=== PATIENT | female | born 1985 | race American Indian/Alaskan Native ===

== ENCOUNTER 2017-10-10 10:07 | Emergency (ER) | payer OTHER ==
[2017-10-09 20:32] LABS: Basophils % (Auto) 0.6 % (0.0-1.8); Eosinophils % (Auto) 0.5 % (0.0-4.3); Hematocrit 37.7 % (30.3-42.9); Hemoglobin 13.1 gm/dl (10.1-14.3); Lymphocytes # (Auto) 1.8 K/mm3 (1.2-5.4); Lymphocytes % (Auto) 28.9 % (13.4-35.0); Mean Corpuscular HGB Conc 35 % (30-34); Mean Corpuscular Hemoglobin 30 pg (28-32); Mean Corpuscular Volume 86 fl (79-97); Monocytes # (Auto) 0.6 K/mm3 (0.0-0.8); Platelet Count 297 K/mm3 (140-440); Red Blood Count 4.37 M/mm3 (3.65-5.03); Red Cell Distribution Width 13.4 % (13.2-15.2)
[2017-10-09 20:45] LABS: Mucus,Urine FEW /HPF
[2017-10-09 20:51] LABS: Alanine Aminotransferase 11 units/L (7-56); Albumin 4.3 g/dL (3.9-5); BUN/Creatinine Ratio 13; Blood Urea Nitrogen 8 mg/dL (7-17); Calcium 8.6 mg/dL (8.4-10.2); Hemolysis Index 3
[2017-10-09 21:06] LABS: Bacteria,Urine 1+ /HPF (Negative); Bilirubin,Urine NEG (Negative); Blood,Urine LG (Negative); Color,Urine Yellow (Yellow); Protein,Urine <15 mg/dL mg/dL (Negative); Urobilinogen,Urine < 2.0 mg/dL (<2.0)
--- NOTE | 2017-10-09 22:06 | Ultrasound Report ---
FINAL REPORT EXAM: US OB TRANSVAGINAL HISTORY: +hcg abd pain TECHNIQUE: Ultrasound obstetrical transvaginal PRIORS: None. FINDINGS: Uterus measures 8.5 x 4.5 x 5.4 centimeters no focal myometrial seen There is no evidence for gestational sac within the uterus Left ovary is 2.7 x 1.7 x 1.3 centimeters. No abnormal mass or cyst identified on the left The right ovary is 3.2 x 2.2 x 2.2 centimeters Just adjacent to the right ovary there is a thick walled ring-like structure which is hypoechoic internally. There is a yolk sac identified and a pole. cardiac activity present with heart rate of 108 beats per minute Minimal non complex free fluid seen within the cul-de-sac IMPRESSION: Findings are positive for ectopic . There is a gestational sac with pole present just adjacent to the right ovary. cardiac activity noted Minimal non complex free fluid within the cul-de-sac
--- NOTE | 2017-10-09 22:08 | Ultrasound Report ---
FINAL REPORT EXAM: US OB < = 14 WEEKS FETUS HISTORY: +hcg abd pain TECHNIQUE: Ultrasound obstetrical transabdominal PRIORS: None. FINDINGS: Uterus measures 8.5 x 4.5 x 5.4 centimeters no focal myometrial seen There is no evidence for gestational sac within the uterus Left ovary is 2.7 x 1.7 x 1.3 centimeters. No abnormal mass or cyst identified on the left The right ovary is 3.2 x 2.2 x 2.2 centimeters Just adjacent to the right ovary there is a thick walled ring-like structure which is hypoechoic internally. There is a yolk sac identified and a pole. cardiac activity present with heart rate of 108 beats per minute. pole measures 3.4 millimeters corresponding to estimated gestational age of 6 weeks 0 days Minimal non complex free fluid seen within the cul-de-sac IMPRESSION: Findings are positive for ectopic . There is a gestational sac with pole present just adjacent to the right ovary. cardiac activity noted. [place]-rump length measuring at 6 weeks 0 days. Minimal non complex free fluid within the cul-de-sac
--- NOTE | 2017-10-09 22:19 | Emergency Department Report ---
ED Abdominal Pain HPI - General Chief Complaint: Abdominal Pain Stated Complaint: ABD PAIN/ Source: patient Mode of arrival: Ambulatory Limitations: No Limitations - History of Present Illness Initial Comments: There is a 32-year-old [place] female A3 at this point all 3 ectopic patient has had ectopic pregnancies 2 over the past 2 years presents today for right lower quadrant pain special. 6 weeks ago started spotting one week ago to progress active bleeding today pain is a 10 cramping sharp ultrasound shows right ectopic hCG was [id number] oh be paged I was notified by radiology for ectopic plan admit to OB problem possible lapapscopy MD Complaint: abdominal pain, flank pain Onset/Timin -: days(s) Location: RLQ, suprapubic Radiation: suprapubic, R flank Severity scale (0 -10): 8 Quality: cramping, sharp Consistency: constant Improves With: nothing Worsens With: movement Associated Symptoms: other (vaginal bleeding ) - Related Data LMP Date: 09/01/17 LMP (females 10-50): other (6 weeks) Previous Rx's Medication Instructions Recorded Last Taken Type metroNIDAZOLE [Flagyl] 500 mg PO BID #14 tablet 08/30/13 Unknown Rx Allergies Allergy/AdvReac Type Severity Reaction Status Date / Time No Known Allergies Allergy Verified 10/09/17 22:30 ED Review of Systems ROS: Stated complaint: ABD PAIN/ Other details as noted in HPI Constitutional: denies: chills, fever Eyes: denies: eye pain, eye discharge, vision change ENT: denies: ear pain, throat pain Respiratory: denies: cough, shortness of breath, wheezing Cardiovascular: denies: chest pain, palpitations Endocrine: no symptoms reported Gastrointestinal: nausea, vomiting Genitourinary: other (vaginal bleeding ) Musculoskeletal: denies: back pain, joint swelling, arthralgia Skin: denies: rash, lesions Neurological: denies: headache, weakness, paresthesias Psychiatric: denies: anxiety, depression Hematological/Lymphatic: denies: easy bleeding, easy bruising ED Past Medical Hx - Past Medical History Previous Medical History?: No - Surgical History Past Surgical History?: Yes Additional Surgical History: ECTOPIC X2 - Social History Smoking Status: Former Smoker Substance Use Type: None - Medications Home Medications: Home Medications Medication Instructions Recorded Confirmed Last Taken Type metroNIDAZOLE [Flagyl] 500 mg PO BID #14 tablet 08/30/13 Unknown Rx ED Physical Exam - General Limitations: No Limitations General appearance: alert, in no apparent distress - Head Head exam: Present: atraumatic, normocephalic - Eye Eye exam: Present: normal appearance - ENT ENT exam: Present: mucous membranes moist - Neck Neck exam: Present: normal inspection - Respiratory Respiratory exam: Present: normal lung sounds bilaterally. Absent: respiratory distress - Cardiovascular Cardiovascular Exam: Present: regular rate, normal rhythm. Absent: systolic murmur, diastolic murmur, rubs, gallop - GI/Abdominal GI/Abdominal exam: Present: tenderness (RLQ superpubic ), guarding, rebound, normal bowel sounds. Absent: rigid, organomegaly, mass, bruit, pulsatile mass, hernia - Rectal Rectal exam: Present: deferred - Extremities Exam Extremities exam: Present: normal inspection - Back Exam Back exam: Present: normal inspection - Neurological Exam Neurological exam: Present: alert, oriented X3, CN II-XII intact, normal gait, reflexes normal - Psychiatric Psychiatric exam: Present: normal affect, normal mood - Skin Skin exam: Present: warm, dry, intact, normal color. Absent: rash ED Course Vital Signs 10/09/17 10/09/17 10/09/17 20:03 22:22 22:34 Temperature 98.8 F Pulse Rate 88 71 Respiratory 18 18 19 Rate Blood Pressure 118/79 Blood Pressure [Right] O2 Sat by Pulse 97 98 Oximetry 10/09/17 10/09/17 10/09/17 22:44 22:46 23:00 Temperature Pulse Rate 73 93 H 77 Respiratory 16 14 11 L Rate Blood Pressure 130/76 132/69 Blood Pressure 130/76 [Right] O2 Sat by Pulse 99 99 99 Oximetry 10/09/17 10/09/17 10/09/17 23:03 23:16 23:33 Temperature Pulse Rate 79 Respiratory 18 11 L 18 Rate Blood Pressure 132/69 Blood Pressure [Right] O2 Sat by Pulse 100 Oximetry 10/09/17 10/09/17 10/10/17 23:34 23:46 00:00 Temperature Pulse Rate 76 61 72 Respiratory 24 15 16 Rate Blood Pressure 132/69 132/69 132/69 Blood Pressure [Right] O2 Sat by Pulse 99 99 Oximetry 10/10/17 10/10/17 10/10/17 00:16 00:20 00:30 Temperature Pulse Rate 61 66 64 Respiratory 16 14 15 Rate Blood Pressure 132/69 132/69 132/69 Blood Pressure [Right] O2 Sat by Pulse 99 99 98 Oximetry 10/10/17 00:45 Temperature Pulse Rate 65 Respiratory 15 Rate Blood Pressure Blood Pressure [Right] O2 Sat by Pulse 98 Oximetry ED Medical Decision Making - Lab Data Result diagrams: 10/09/17 20:20 10/09/17 20:20 - Radiology Data Radiology results: report reviewed, image reviewed interpreted by me: pos ectopic right ,call via radiology trent Barraza - Medical Decision Making GERIATRIC SOCIAL WORK PROFESSOR consult call . Dr. Boyer to bedside at this time for eval , treatment plan admit to surgery GERIATRIC SOCIAL WORK PROFESSOR diagnoses ectopic right discussing the patient patient verbalizes understanding and agreement with treatment plan present, NO 3 no acute distress at this time , pain 4/10 , type crossmatch completed , iv larg bore x 2, NS 1000 bolus, NS ivf continuous. prn morphine R 36zofran. Critical care attestation.: If time is entered above; I have spent that time in minutes in the direct care of this critically ill patient, excluding procedure time. ED Disposition Clinical Impression: Ectopic Qualifiers: Location of ectopic : tubal Intrauterine status: unspecified Laterality: unspecified laterality Qualified Code(s): O00.109 - Unspecified tubal without intrauterine Disposition: OP ADMIT IP TO THIS HOSP Is pt being admited?: Yes Does the pt Need Aspirin: No Condition: Serious Instructions: Abdominal Pain (ED), Ectopic (ED) Time of Disposition: 22:24
--- NOTE | 2017-10-09 23:10 | History and Physical Report ---
History of Present Illness Date of examination: 10/09/17 Chief complaint: Ectopic History of present illness: This is a 32-year-old female who presented to the ED with pelvic pain. Her evaluation is consistent with and ectopic with free fluid in the pelvis that's mostly blood. Past History Past Medical History: No medical history Past Surgical History: Other (Laparoscopic (R) salpingostomy, Laparoscopic (L) salpingectomy) Social history: no significant social history Medications and Allergies Allergies Allergy/AdvReac Type Severity Reaction Status Date / Time No Known Allergies Allergy Verified 10/09/17 22:30 Home Medications Medication Instructions Recorded Confirmed Last Taken Type metroNIDAZOLE [Flagyl] 500 mg PO BID #14 tablet 08/30/13 Unknown Rx Active Meds: Active Medications Sodium Chloride (Nacl 0.9% 1000 Ml) 1,000 mls @ 250 mls/hr IV ONCE ONE Stop: 10/10/17 00:07 Cefazolin Sodium (Ancef/Sterile Water 2 Gm/20 Ml) 2 gm in 20 mls @ 80 mls/hr IV PREOP NR; Protocol Morphine Sulfate (Morphine) 2 mg IV Q4H PRN PRN Reason: Pain, Moderate (4-6) Last Admin: 10/09/17 23:03 Dose: 2 mg Ondansetron HCl (Zofran) 4 mg IV Q4HR PRN PRN Reason: n/v Last Admin: 10/09/17 23:03 Dose: 4 mg Review of Systems All systems: negative - Genitourinary Genitourinary: pelvic pain Exam Vital Signs Temp Pulse Resp BP Pulse Ox 98.8 F 88 18 118/79 97 10/09/17 20:03 10/09/17 20:03 10/09/17 20:03 10/09/17 20:03 10/09/17 20:03 Results - Labs 10/09/17 20:20 10/09/17 20:20 Abnormal lab results 10/09/17 10/09/17 10/09/17 Range/Units 20:20 20:20 20:20 MCHC 35 H (30-34) % [place] % (Auto) 9.0 H (0.0-7.3) % Sodium 135 L (137-145) mmol/L Creatinine 0.6 L (0.7-1.2) mg/dL HCG, Quant 9255 H (0-4) mIU/mL Diabetes panel 10/09/17 Range/Units 20:20 Sodium 135 L (137-145) mmol/L Potassium 3.7 (3.6-5.0) mmol/L Chloride 98.2 (98-107) mmol/L Carbon Dioxide 24 (22-30) mmol/L BUN 8 (7-17) mg/dL Creatinine 0.6 L (0.7-1.2) mg/dL Glucose 95 (65-100) mg/dL Calcium 8.6 (8.4-10.2) mg/dL AST 17 (5-40) units/L ALT 11 (7-56) units/L Alkaline Phosphatase 73 (35-129) units/L Total Protein 7.5 (6.3-8.2) g/dL Albumin 4.3 (3.9-5) g/dL Calcium panel 10/09/17 Range/Units 20:20 Calcium 8.6 (8.4-10.2) mg/dL Albumin 4.3 (3.9-5) g/dL Pituitary panel 10/09/17 Range/Units 20:20 Sodium 135 L (137-145) mmol/L Potassium 3.7 (3.6-5.0) mmol/L Chloride 98.2 (98-107) mmol/L Carbon Dioxide 24 (22-30) mmol/L BUN 8 (7-17) mg/dL Creatinine 0.6 L (0.7-1.2) mg/dL Glucose 95 (65-100) mg/dL Calcium 8.6 (8.4-10.2) mg/dL Adrenal panel 10/09/17 Range/Units 20:20 Sodium 135 L (137-145) mmol/L Potassium 3.7 (3.6-5.0) mmol/L Chloride 98.2 (98-107) mmol/L Carbon Dioxide 24 (22-30) mmol/L BUN 8 (7-17) mg/dL Creatinine 0.6 L (0.7-1.2) mg/dL Glucose 95 (65-100) mg/dL Calcium 8.6 (8.4-10.2) mg/dL Total Bilirubin 0.60 (0.1-1.2) mg/dL AST 17 (5-40) units/L ALT 11 (7-56) units/L Alkaline Phosphatase 73 (35-129) units/L Total Protein 7.5 (6.3-8.2) g/dL Albumin 4.3 (3.9-5) g/dL - Imaging US - pelvic: report reviewed, image reviewed Assessment and Plan - Patient Problems (1) Ectopic Current Visit: Yes Status: Acute Qualifiers: Location of ectopic : tubal Intrauterine status: unspecified Laterality: unspecified laterality Qualified Code(s): O00.109 - Unspecified tubal without intrauterine Plan to address problem: Probably right ectopic given her symptoms, history and US report. Excision for ectopic is recommended given the findings. The likely procedure was explained, risks discussed, consent was reviewed and signed and voiced understanding and agrees with the plan of care. She is currently hemodynamicaly stable. She was informed an emergency vascular surgery case is starting in the OR and we will proceed with her surgery immediately after unless her condition changes.
--- NOTE | 2017-10-10 08:43 | Anesthesia Day of Surgery ---
Anesthesia Day of Surgery - Day of Surgery Patient Examined: Yes Patient H&P Reviewed: Yes Patient is NPO: Yes
--- NOTE | 2017-10-10 08:43 | Anesthesia Consultation ---
Anesthesia Consult and Med Hx Date of service: 10/10/17 - Airway Anesthetic Teeth Evaluation: Good ROM Head & Neck: Adequate Mental/Hyoid Distance: Adequate Mallampati Class: Class I Intubation Access Assessment: Good - Pulmonary Exam CTA: Yes - Cardiac Exam Cardiac Exam: RRR - Pre-Operative Health Status ASA Pre-Surgery Classification: ASA2, Emergency
--- NOTE | 2017-10-10 08:52 | Operative Report ---
Operative Report Operative Report: Date of procedure: 10/10/2017 Pre-operative diagnosis: Right ruptured ectopic Post-operative diagnosis: Same Procedure name(s): Exam under anesthesia Diagnostic laparoscopy Evacuation of hemoperitoneum Right salpingectomy with removal of right ectopic Surgeon: Dr. Coronel Coordinator Of Library Services: Dr. Boyer Anesthesia: Gen. endotracheal anesthesia EBL: 50 Urine output: 100ml Fluids: 700ml Findings: Mostly normal ovaries bilaterally. Normal uterus. There appeared to be removal of a significant portion of the left fallopian tube. No portion of the left fallopian tube could be identified. The right fallopian tube involved the ectopic . The ectopic did encompass the entire fallopian tube. There was a small amount of hemoperitoneum that was noted approximately 200 mL. And also was noted that the portion of the ectopic distal to the uterus there was bleeding and evidence of rupture. Indications: Patient presented to the emergency room with diagnosis of right ectopic . Patient was seen and evaluated and consents were obtained by Dr. Boyer. She was given ample time to ask all questions which were addressed and answered. Consents were signed and placed on the chart. Dr. Coronel as the oncoming physician then with Dr. Boyer to the patient to surgery for the above stated procedure. Procedure: Patient was taken to the operating room where she was placed in dorsal lithotomy position. She was then placed under general endotracheal anesthesia. Patient was within placed in Nikunj stirrups. Patient was then prepped and draped in normal sterile fashion. A sponge stick was placed inside the vagina. Bladder was emptied using straight catheterization. Urine output was approximately 100 mL of clear urine out at beginning of the procedure. Attention was then turned to the abdomen which a incision was made just above the umbilicus to allow passage of 5 mm trocar. Trocar was placed under direct visualization with the camera. Abdomen was then insufflated. 2 additional trochars were placed in the lower left abdomen. One being 5 mm and the other being 10 mm. The Lupe tripolar instrument was then used to ligate and transect left fallopian tube. Tube was removed in Endo Catch bag. Ectopic was encased inside the fallopian tube. Tube was removed removed undisturbed and intact. No portion of the ectopic was built inside the pelvis. The pelvis was then irrigated copiously with normal saline. All clots were evacuated from the pelvis. All instruments were removed from the abdomen. The gas was released from the abdomen. All incisions were closed using 4-0 Monocryl in a subcuticular stitch. Surgical glue was then placed over these incisions. Patient tolerated procedure well sponge lap and needle counts were all correct. Sponge stick was removed from the vagina. Patient was taken to the recovery room awake and in stable condition.
--- NOTE | 2017-10-10 08:56 | Short Stay Summary ---
Short Stay Documentation Date of service: 10/10/17 - History Principal diagnosis: Right ruptured ectopic Past Medical History: No medical history Past Surgical History: Other (Laparoscopic (R) salpingostomy, Laparoscopic (L) salpingectomy) Social history: no significant social history - Allergies and Medications Current Medications: Allergies No Known Allergies Allergy (Verified 10/09/17 22:30) Home Medications Medication Instructions Recorded Confirmed Last Taken Type metroNIDAZOLE [Flagyl] 500 mg PO BID #14 tablet 08/30/13 Unknown Rx Active Medications Ketorolac Tromethamine (Toradol) 30 mg IV ONCE PRN PRN Reason: Pain, Moderate (4-6) Meperidine HCl (Demerol) 25 mg IV ONCE PRN PRN Reason: Shivering Morphine Sulfate (Morphine) 2 mg IV Q4H PRN PRN Reason: Pain, Moderate (4-6) Last Admin: 10/09/17 23:03 Dose: 2 mg Ondansetron HCl (Zofran) 4 mg IV Q4HR PRN PRN Reason: n/v Last Admin: 10/09/17 23:03 Dose: 4 mg Ondansetron HCl (Zofran) 4 mg IV ONCE PRN PRN Reason: Nausea And Vomiting Promethazine HCl (Phenergan) 25 mg MI ONCE PRN PRN Reason: Nausea And Vomiting - Brief post op/procedure progress note Date of procedure: 10/10/17 Pre-op diagnosis: ectopic Post-op diagnosis: same Procedure: Laparoscopic right salpingectomy Removal of right ectopic Exam under anesthesia Evacuation of hemoperitoneum Anesthesia: GETA Findings: See operative report Surgeon: ELVIRA PITTMAN Business Development Officer: ELIZA MANLEY Estimated blood loss: 50-100ml Pathology: list (ectopic encased in right fallopian tube) Specimen disposition: to lab Condition: stable - Hospital course Hospital course: Patient status post the above-stated procedure. Patient will remain in the PACU and she has met discharge criteria. Patient will be discharged home on today will follow-up in our office in 1 week. - Disposition Condition at discharge: Good Disposition: DC-01 TO HOME OR SELFCARE - Discharge Diagnoses (1) Hx of unilateral salpingectomy Status: Acute (2) Ectopic Status: Acute Qualifiers: Location of ectopic : tubal Intrauterine status: unspecified Laterality: unspecified laterality Qualified Code(s): O00.109 - Unspecified tubal without intrauterine Short Stay Discharge Plan Activity: advance as tolerated, other (PELVIC REST NOT SEX NO TAMPONS NO DOUCHING) Weight Bearing Status: Weight Bear as Tolerated Diet: regular Wound: open to air Additional Instructions: PLEASE CALL THE OFFICE ON [facility] THE OFFICE OF [facility] TO SCHEDULE AN APPOINTMENT WITH DR. MANLEY IN 1 WEEK. THEN NUMBER IS [phone]. PLEASE LET STAFFING KNOW THAT YOU WERE SEEN IN THE ER AND HAD A SURGICAL PROCEDURE. Follow up with: KRISTA MCCOY MD [Primary Care Provider] - 3-5 Days ELVIRA PITTMAN MD [Staff Physician] - 7 Days
--- NOTE | 2017-10-10 09:45 | Post Anesthesia Evaluation ---
- Post Anesthesia Evaluation Patient Participated: Yes Airway Patent: Yes Stable Respiratory Function: Yes Nausea/Vomiting: No Temp > 96.8F: Yes Pain Manageable: Yes Adequeate Hydration: Yes Anesthesia Complications: No
[~2017-10-10 10:07] MED LIST: ANCEF ONE; ANCEF/STERILE WATER 2 GM/20 ML 2 GM/20 ML SYRINGE IV NR; BLOXIVERZ ONE; DEMEROL IV PRN; DILAUDID IV PRN; DILAUDID ONE; DIPRIVAN 10 MG/ML IV ONE; LACTATED RINGERS 1,000 ML ONE; MARCAINE 0.5% 30 ML INFILTRATI ONE; MARCAINE 0.5% INFILTRATI ONE; MORPHINE IV PRN; NACL 0.9% 1000 ML 1,000 ML IV ONE; PHENERGAN PR PRN; QUELICIN ONE; ROBINUL ONE; TORADOL IV PRN; VERSED ONE; XYLOCAINE MPF 2% ONE; ZEMURON IV ONE; ZOFRAN IV PRN
[2017-10-10] MEDS ORDERED: PERCOCET 5/325 PO PRN (11:12)
[2017-10-10 12:52] VITALS: BP 104/63
== END 2017-10-10 13:04 | disposition home or self-care (01) ==
LOC: OR 10:07
DX: O00.201 Right ovarian pregnancy without intrauterine pregnancy (principal); Z87.891 Personal history of nicotine dependence; Z3A.01 Less than 8 weeks gestation of pregnancy
CPT/HCPCS: 36415; 76801; 76817; 80053; 81001; 84702; 85025; 86850; 86900; 86901; 88305; 96361; 96374; 96375; J0330; J0690; J1170; J1885; J2250; J2270; J2405; J2704; J2710; J7030; J7120